=== PATIENT | female | born 1930 | race Caucasian/White ===

== ENCOUNTER 2016-11-23 23:37 | Emergency (ER) | payer MEDICARE, OTHER ==
[~2016-11-23] VITALS: Ht 154.9 cm; Wt 47.6 kg
[~2016-11-23 23:37] MED LIST: AMLO5TAB2 PO; ANAS1TAB PO; ASPI-498 OR; DONE10TA37 PO; MEMA1TAB2 PO; PRAV20TA3 PO; QUET50TA25 PO
[2016-11-24 00:27] LABS: Basophils # (auto) 0 uL; Basophils % (auto) 0.2 % (0.0-2.0); Eosinophils # (auto) 0 uL; Eosinophils % (auto) 0.2 % (0.0-7.0); Hematocrit 32.6 % (36.0-46.0); Hemoglobin 10.5 g/dL (12.2-16.2); Lymphocytes # (auto) 0.6 uL; Lymphocytes % (auto) 6.5 % (10.0-50.0); Mean Corpuscular Hemoglobin 28.9 pg (28.0-32.0); Mean Corpuscular Hgb Conc. 32.2 g/dL (32.0-36.0); Mean Corpuscular Volume 89.7 fL (80.0-100.0); Mean Platelet Volume 8.8 fL (6.9-10.8); Monocytes # (auto) 0.7 uL; Monocytes % (auto) 8.6 % (0.0-12.0); Neutrophils # (auto) 7.3 uL; Neutrophils % (auto) 84.5 % (37.0-80.0); Nucleated Red Blood Cells % 0.1 %; Platelet Count (auto) 191 10^3/uL (140-450); Red Cell Distribution Width 16.8 % (11.8-14.3); White Blood Cell 8.6 10^3/uL (4.4-10.8)
[2016-11-24 00:40] LABS: INR 1.33 (0.9-1.15); Partial Thromboplastin Time 33.4 sec (22.64-33.71); Prothrombin Time 14.5 sec (9.37-12.3)
[2016-11-24 00:46] LABS: Amylase 28 U/L (25-115)
[2016-11-24 00:49] LABS: Albumin 2.7 g/dL (3.4-5.0); BUN/Creatinine Ratio 20.2; Calcium 7.8 mg/dL (8.5-10.1); Magnesium 2.6 mg/dL (1.6-2.6); Potassium 4.5 mmol/L (3.5-5.1); Total Protein 6.9 g/dL (6.4-8.2)
[2016-11-24 00:58] LABS: Temperature: 22.7 C (20.0-25.0)
[2016-11-24] MEDS ORDERED: cefTRIAXone 1GM/50ML D5W 50 ML IV ONE (01:30)
[2016-11-24] MEDS ORDERED: metroNIDAZOLE 500MG/100ML 100 ML IV ONE (01:30)
[2016-11-24] MEDS ORDERED: HYDROmorphone HCL 2 MG/ML VL ONE (01:53)
[2016-11-24] MEDS ORDERED: ONDANSETRON HCL 4 MG/2 ML VIAL ONE (01:53)
[2016-11-24] MEDS ORDERED: ONDANSETRON HCL 4 MG/2 ML VIAL IV ONE (02:30)
[2016-11-24] MEDS ORDERED: HYDROmorphone HCL 2 MG/ML VL IV ONE (02:30)
[2016-11-24] MEDS ORDERED: VANCOMYCIN 1GM/250ML D5W 250 ML IV ONE (03:15)
[2016-11-24] MEDS ORDERED: SODIUM CHLORIDE 0.9% 1,000 ML IV ONE (03:30)
[2016-11-24 05:40] LABS: Urine RBC None Seen /hpf (0 - 4)
[2016-11-24 05:57] LABS: Urine Bilirubin Negative (Negative); Urine Blood Negative /uL (Negative); Urine Color Yellow (Yellow); Urine Glucose Normal (Normal); Urine Granular Cast FEW /lpf (0); Urine Hyaline Cast FEW /lpf (0 - 2); Urine Ketone Negative (Negative); Urine Mucus FEW (None Seen); Urine Nitrite Negative (Negative); Urine Squamous Epithelial Cell FEW /hpf (<5); Urine Urobilinogen Normal (Negative); Urine pH 5.5 (5.0-8.0)
[2016-11-24] MEDS ORDERED: SUCCINYLCHOLINE CHLORIDE 20 MG/ML 10ML VIAL IV ONE ×2 (06:22→06:45)
[2016-11-24] MEDS ORDERED: ETOMIDATE (2MG/ML) 20ML VIAL IV ONE ×2 (06:22→06:45)
[2016-11-24] MEDS ORDERED: MIDAZOLAM DRIP 50 mg/50mL 50 ML IV ONE (06:29)
[2016-11-24] MEDS ORDERED: HETASTARCH 500 ML IV ONE (06:30)
[2016-11-24] MEDS ORDERED: MIDAZOLAM DRIP 50 mg/50mL 50 ML IV SCH ×2 (06:34→06:45)
[2016-11-24 06:41] LABS: Allen Test Modified; Base Excess -8.7 mmol/L (-2.0-2.0); Blood 02Sat 94.8 % (96-100); Blood MetHb 0.2 % (0.0-1.5); HHb 5.2 % (0.0-5.0); MODE ROOM AIR; O2Hb 94.6 % (94.0-97.0); PCO2 30.8 mmHg (35.0-45.0); PCO2(T) 30.8 mmHg (35.0-45.0); PO2 83.4 mmHg (80.0-100.0); PO2(T) 83.4 mmHg (80.0-100.0); Sample Type Arterial; pH 7.333 (7.350-7.450)
[2016-11-24] MEDS ORDERED: NOREPINEPHRINE BITARTRATE 250 ML IV ONE (06:54)
[2016-11-24 07:17] VITALS: BP 135/93
== END 2016-11-24 09:03 | disposition short-term general hospital (02) ==
LOC: EDBD 23:37 → ER 23:48
DX: K63.1 Perforation of intestine (nontraumatic) (principal); I48.91 Unspecified atrial fibrillation; I13.0 Hypertensive heart and chronic kidney disease with heart failure and stage 1 through stage 4 chronic kidney disease, or unspecified chronic kidney disease; I50.9 Heart failure, unspecified; E11.22 Type 2 diabetes mellitus with diabetic chronic kidney disease; N18.3 Chronic kidney disease, stage 3 (moderate); Z86.73 Personal history of transient ischemic attack (TIA), and cerebral infarction without residual deficits; Z79.82 Long term (current) use of aspirin; Z79.899 Other long term (current) drug therapy; Z90.49 Acquired absence of other specified parts of digestive tract
CPT/HCPCS: 31500; 36415; 36600; 51702; 70450; 71010; 74176; 80053; 80307; 81001; 82150; 82805; 83605; 83690; 83735; 83880; 84484; 85025; 85379; 85610; 85730; 87040; 93005; 96365; 96367; 96368; 96375; 99285; J0330; J0696; J1170; J2250; J2405; J3370; J3490